=== PATIENT | male | born 1995 | race Caucasian/White ===

== ENCOUNTER 2020-03-08 15:35 | Emergency (ER) | payer MEDICAID ==
[~2020-03-08] VITALS: Ht 172.7 cm; Wt 102.3 kg
[2020-03-08] MEDS ORDERED: IBUP-1689 PO (15:41)
[2020-03-08 18:51] VITALS: BP 137/68
== END 2020-03-08 18:53 | disposition home or self-care (01) ==
LOC: EMS 15:35
DX: S90.31XA Contusion of right foot, initial encounter (principal); W22.8XXA Striking against or struck by other objects, initial encounter; Y93.89 Activity, other specified; Y92.89 Other specified places as the place of occurrence of the external cause; Y99.8 Other external cause status